=== PATIENT | female | born 1985 | race Caucasian/White ===

== ENCOUNTER 2018-01-04 16:57 | Emergency (ER) | payer MEDICAID ==
[2018-01-04] MEDS ORDERED: cefTRIAXone 1 GM, Lidocaine 1% 2.1 ML IM ONE ×2 (17:19)
[2018-01-04] MEDS ORDERED: methylPREDNISolone Sodium Succinate 125 MG/2 ML SDV IM ONE (17:19)
[2018-01-04] MEDS ORDERED: Loratadine 10 MG Tab PO ONE (17:19)
--- NOTE | 2018-01-04 17:30 | EDM.PDOC ---
Scribed by Tonya Ramachandran 01/04/18 [id number] for Yariel Poole MD ED HPI GENERAL MEDICAL PROBLEM - General Chief Complaint: Skin Complaint Stated Complaint: [id number] allergic reaction TOPICAL Time Seen by Provider: 01/04/18 17:04 Source of Information: Reports: Patient, RN, RN Notes Reviewed History Limitations: Reports: No Limitations - History of Present Illness INITIAL COMMENTS - FREE TEXT/NARRATIVE: Patient presents to ER with complaint of painful burning rash of blistering bumps with surrounding erythema to bilateral lower extremities distal to the mid calf. Onset was one day [place] she found herself in a pile of large ants but did not feel them bite her. She also walked through a large patch of poison sumac that came in contact with her skin of the ankle and lower legs. Onset Date: 01/01/18 Duration: Getting Worse Location: Reports: Lower Extremity, Left, Lower Extremity, Right Quality: Reports: Burning Severity: Severe Improves with: Reports: None Worsens with: Reports: None Associated Symptoms: Reports: No Other Symptoms Bilateral Lower Leg Pain Score (Numeric/FACES): 7 - Related Data Allergies Allergy/AdvReac Type Severity Reaction Status Date / Time No Known Allergies Allergy Verified 01/04/18 17:23 Home Meds: Home Meds . [No Known Home Meds] 01/04/18 [History] ED ROS GENERAL - Review of Systems Review Of Systems: ROS reveals no pertinent complaints other than HPI. ED EXAM, SKIN/RASH Exam: See Below Exam Limited By: No Limitations General Appearance: Alert, WD/WN, No Apparent Distress Nose: Normal Inspection Throat/Mouth: Normal Voice Head: Atraumatic, Normocephalic Neck: Normal Inspection Respiratory/Chest: No Respiratory Distress Cardiovascular: Regular Rate, Rhythm, Tachycardia Neurological: Alert, Oriented, Normal Cognition, Normal Gait, No Motor/Sensory Deficits Skin: Warm, Dry, Rash (bilatera lower extremities from the mid calf level to the distal toes with nodular blisters, some with serous drainage and regional erythema that is tender with increaed warmth.) Course - Vital Signs Last Recorded V/S: Last Vital Signs Temp 37.0 C 01/04/18 17:02 Pulse 116 H 01/04/18 17:02 Resp 18 01/04/18 17:02 BP 147/80 H 01/04/18 17:02 Pulse Ox 99 01/04/18 17:02 - Orders/Labs/Meds Orders: Active Orders 24 hr Category Date Time Status CULTURE WOUND [RM] Stat Lab 01/04/18 17:23 Ordered Meds: Medications Discontinued Medications Generic Name Dose Route Start Last Admin Trade Name Vera PRN Reason Stop Dose Admin Ceftriaxone Sodium 1 gm/ 0 gm 01/04/18 17:19 Lidocaine HCl 2.1 ml IM 01/04/18 17:20 ONETIME ONE Loratadine 10 mg 01/04/18 17:19 Claritin PO 01/04/18 17:20 ONETIME ONE Methylprednisolone Sodium Succinate 125 mg 01/04/18 17:19 Solu-Medrol IM 01/04/18 17:20 ONETIME ONE Departure - Departure Time of Disposition: 17:19 Disposition: Home, Self-Care 01 Condition: Good Clinical Impression: Dermatitis due to plants, including poison marla, sumac, and oak Contact dermatitis Qualifiers: Contact dermatitis type: irritant Contact dermatitis trigger: non-food plants Qualified Code(s): L24.7 - Irritant contact dermatitis due to plants, except food Cellulitis Qualifiers: Site of cellulitis: extremity Site of cellulitis of extremity: lower extremity Laterality: unspecified laterality Qualified Code(s): L03.119 - Cellulitis of unspecified part of limb - Discharge Information Instructions: Cellulitis, Adult, [id number], Contact Dermatitis, [id number] Referrals: PCP,None [Primary Care Provider] - Forms: ED Department Discharge Additional Instructions: Rx: Prednisione 20mg Rx: Zyrtec 10mg Rx: Cephalexin 500mg Use over the counter Calamine Lotion to your legs. Follow direction on bottle. Follow up in clinic if not improving as expected in 3 to 4 days. Return to ER if worse at any time. - My Orders Last 24 Hours: My Active Orders 01/04/18 17:23 CULTURE WOUND [RM] Stat - Assessment/Plan Last 24 Hours: My Active Orders 01/04/18 17:23 CULTURE WOUND [RM] Stat I have read and agree with the documentation that has been completed regarding this visit. By signing this record, I attest that the documentation was completed in my physical presence and is an accurate record of the encounter.
== END 2018-01-04 17:53 | disposition home or self-care (01) ==
LOC: DL.ED 16:57
DX: L24.7 Irritant contact dermatitis due to plants, except food (principal); L03.115 Cellulitis of right lower limb; L03.116 Cellulitis of left lower limb
CPT/HCPCS: 87070; 96372; 99282; A9270; J0696; J2930

== ENCOUNTER 2018-01-13 19:00 | Emergency (ER) | payer MEDICAID ==
--- NOTE | 2018-01-13 21:11 | EDM.PDOC ---
ED HPI GENERAL MEDICAL PROBLEM - General Chief Complaint: Skin Complaint Stated Complaint: [id number] RASH-POSSIBLE POISON GIOVANI Time Seen by Provider: 01/13/18 21:05 Source of Information: Reports: Patient History Limitations: Reports: No Limitations - History of Present Illness INITIAL COMMENTS - FREE TEXT/NARRATIVE: was here last week for same, Tx with abx & pred & antihist. had problems with antihis & pred from insomnia, and noticed new itchy rash developed so she stopped the abx and felt better, but lower leg area is better but thought it will all be better by now. did call RN and was told to come here. - Related Data Allergies Allergy/AdvReac Type Severity Reaction Status Date / Time No Known Allergies Allergy Verified 01/13/18 19:20 Home Meds: Home Meds . [No Known Home Meds] 01/04/18 [History] Past Medical History Gastrointestinal History: Reports: Celiac Disease, Irritable Bowel Syndrome [employer] History: Reports: - Infectious Disease History Infectious Disease History: Reports: Shingles - Past Surgical History HEENT Surgical History: Reports: Oral Surgery Female Surgical History: Reports: Section Social & Family History - Tobacco Use Smoking Status *Q: Never Smoker - Caffeine Use Caffeine Use: Reports: Coffee, Tea - Recreational Drug Use Recreational Drug Use: No ED ROS GENERAL - Review of Systems Review Of Systems: ROS reveals no pertinent complaints other than HPI. ED EXAM, SKIN/RASH Exam: See Below Exam Limited By: No Limitations General Appearance: Alert, WD/WN, No Apparent Distress Ears: Hearing Grossly Normal Throat/Mouth: Normal Voice, No Airway Compromise Head: Atraumatic Neck: Non-Tender, Full Range of Motion Respiratory/Chest: No Respiratory Distress Cardiovascular: Regular Rate, Rhythm GI/Abdominal: Soft, Non-Tender Neurological: Alert, Oriented, Normal Cognition, Normal Gait, No Motor/Sensory Deficits Psychiatric: Normal Affect, Normal Mood Skin: Warm, Dry, Normal Color, Rash Location, Skin: Abdomen, Lower Extremity, Right, Lower Extremity, Left Characteristics: Other (lower legs with few small areas of crusty dried sores, pt states they actually look better than before, few areas of erythema that are better, no gross s/s cellulitis/lymphangitis) Associated features: Crusting, Rough Lymphatic: No Adenopathy Course - Vital Signs Last Recorded V/S: Last Vital Signs Temp 36.8 C 01/13/18 19:14 Pulse 96 01/13/18 19:14 Resp 16 01/13/18 19:14 BP 144/82 H 01/13/18 19:14 Pulse Ox 98 01/13/18 19:14 - Orders/Labs/Meds Orders: Active Orders 24 hr Category Date Time Status Silver Sulfadiazine [Silvadene 1% Cream 50 GM] Med 01/13/18 21:05 Once 50 gm TOP ONETIME ONE Departure - Departure Time of Disposition: 21:13 Disposition: Home, Self-Care 01 Condition: Good Clinical Impression: Contact dermatitis Qualifiers: Contact dermatitis type: irritant Contact dermatitis trigger: non-food plants Qualified Code(s): L24.7 - Irritant contact dermatitis due to plants, except food Adverse reaction to anti-infectives Qualifiers: Encounter type: initial encounter Qualified Code(s): T37.95XA - Adverse effect of unspecified systemic anti-infective and antiparasitic, initial encounter - Discharge Information Instructions: Contact Dermatitis, [id number] Additional Instructions: 1) do daily dressing change with silvadene cream to lower leg areas. 2) see clinic Wednesday if not significantly better 3) return if there is any change or concern rx togo; silvadene cream - My Orders Last 24 Hours: My Active Orders 01/13/18 21:05 Silver Sulfadiazine [Silvadene 1% Cream 50 GM] 50 gm TOP ONETIME ONE - Assessment/Plan Last 24 Hours: My Active Orders 01/13/18 21:05 Silver Sulfadiazine [Silvadene 1% Cream 50 GM] 50 gm TOP ONETIME ONE
[2018-01-13] MEDS: Silver Sulfadiazine 1% Crm 50 GM Tube TOP ONE (21:21)
== END 2018-01-13 21:28 | disposition home or self-care (01) ==
LOC: DL.ED 19:00
DX: L24.7 Irritant contact dermatitis due to plants, except food (principal); T37.95XA Adverse effect of unspecified systemic anti-infective and antiparasitic, initial encounter
CPT/HCPCS: 99282; A9270